=== PATIENT | female | born 1945 | race Caucasian/White ===

== ENCOUNTER → 2016-09-03 | Day surgery (SDC) | payer BC ==
--- NOTE | 2016-08-28 17:58 | MH ---
cc: FIFI DEL ANGEL MD DATE OF ADMISSION: 09/03/2016 DATE OF : 1945 REASON FOR ADMISSION: scheduled for trans obturator tape and the pelvic repair. HISTORY OF PRESENT ILLNESS: The patient is a 71-year-old white female 3, para 2 status post history of total abdominal hysterectomy and bilateral salpingo-oophorectomy. She has issues with stress urinary continence and pelvic organ prolapse posterior compartment. She had urodynamic study that shows no detrusor instability. No postvoid residual and leakage in approximately 50% capacity. PAST MEDICAL HISTORY: 1. Hypertension 2. hypercholesterolemia. MEDICATIONS 1. Aspirin 81 mg daily. 2. Pristiq 20 mg daily. 3. Diazepam 5 mg p.r.n. 4. Crestor 10 mg daily. ALLERGIES LIPITOR LORTAB OXYCODONE MORPHINE ADHESIVE TAPE CODEINE VICODIN PAST SURGICAL HISTORY 1. Total abdominal hysterectomy, bilateral salpingo-oophorectomy 2. Tonsillectomy 3. cholecystectomy. 4. Lumbar disk surgery 5. breast implants 6. Lasik procedure. SOCIAL HISTORY , has good social support. No alcohol or drugs. OBSTETRICAL HISTORY Two vaginal deliveries, largest baby 8.9 pounds GYNECOLOGIC HISTORY No STDs or abnormal Pap smears, hysterectomy for endometriosis. FAMILY HISTORY Noncontributory. REVIEW OF SYSTEMS Review of systems as above. No chest pain, orthopnea, PND. No nausea or chills. No vaginal bleeding or discharge. PHYSICAL EXAMINATION: VITAL SIGNS: height is 5'5", Weight 146, BMI is 24. Blood pressure 140/80. IN GENERAL: Patient is alert and oriented, in no acute distress. No sign of cognitive dysfunction or depression. HEAD, EYES, EARS, NOSE, AND THROAT: Normocephalic, atraumatic. [ NECK: supple. No JVD. CHEST: Clear. HEART: Regular rate and rhythm. ABDOMEN: The abdomen is soft, nontender, No hepatosplenomegaly. No tenderness. PELVIC: Exam in the office shows pop Q score Aa -2, Ap 0.3, Point C is -4, total vaginal length is 10. Perineal body is 5. Hypermobility of urethra as noted 30 degrees from horizontal with stress incontinence noted. Postvoid residual 30 cc. Further exam under anesthesia. EXTREMITIES: Normal skin rashes and nonfocal. No DVT signs. ASSESSMENT Patient with two separate issues, one stress urinary incontinence. Stress options for management treatment. She is aware of the risks, benefits, alternatives of planned procedure including damage to surrounding organs, bleeding, infection, failure to cure the incontinence also possibility of urinary dysfunction with prolonged catheterization. Pelvic pain and the pain with intercourse also discussed. Patient has made informed choice to proceed. The patient with pelvic organ prolapse posterior compartment stage II symptomatic. We discussed options for management treatment. She is aware of the risks returns procedure including damage to surrounding organs, bleeding, infection, possibility of failure of repair pain with intercourse, damage to bowel and ureters, failure of repair as well as healing complications. The patient expressed understanding of the above plan. At this point we used deep venous thrombosis prophylaxis with sequential compression device and antibiotic prophylaxis 2 grams Ancef IV. Anticipate outpatient procedure. MD KALIE Cochran/joleen /5:12 PM /5:51 PM
[~2016-09-03] MED LIST: ACETAMINOPHEN 1000 MG/100 ML VIAL IV ONE; ASPI-110 PO; BUDE0.5S NEB; CALC1TAB87 PO; CHEL50TA PO; CHLORHEXIDINE GLUCONATE 2 % 1 PACK (2 CLOTHS) TOPICAL PRN; COBA1000 PO; COZA25TA PO; CRAN500C9 PO; DESV25TA PO; DEXAMETHASONE SOD PHOS 4 MG/ML VIAL ONE; DIAZ5TAB PO; DO NOT ADM ANY ANTICOAGULANT DRUGS PRN; ESTR1TAB78 VAGINAL; ESTROGENS CONJUGATED VAG CREA 15 APPL/30 GM TUBE ONE; FAMOTIDINE 20 MG/2 ML VIAL ONE; FLUORESCEIN SOD 10% SOLN 500 MG/5 ML AMP IV ONE; FLUORESCEIN SOD 10% SOLN 500 MG/5 ML AMP ONE; INSULIN HUMAN REGULAR 1,000 UNITS/10 ML VIAL SQ PRN; KETOROLAC TROMETHAMINE 30 MG/ML (IVP) VIAL IV PUSH PRN; KETOROLAC TROMETHAMINE 60 MG/2 ML (IM) VIAL IM ONE; LACTATED RINGER'S 1000 ML INJ 1,000 ML IV ONE; LACTATED RINGER'S 1000 ML IV PRN; LIDOCAINE 1%/EPINEPHrine 1:100,000 SOLN 20 ML VIAL ONE; LIDOCAINE 1%/EPINEPHrine 1:100,000 SOLN 30 ML VIAL INFIL ONE; METHYLENE BLUE 10 MG/ML VIAL OTHER ONE; METOPROLOL TARTRATE 25 MG TAB PO PRN; MIDAZOLAM HCL 2 MG/2 ML VIAL ONE; MULTTAB25 PO; NIAC100T2 PO; ONDANSETRON HCL 4 MG/2 ML VIAL IV PUSH ONE; ONDANSETRON HCL 4 MG/2 ML VIAL IV PUSH PRN; POVIDONE IODINE 5% (ANTISEPSIS KIT) 4 APPLICATIONS EACH NARE PRN; PROPOFOL 200 MG/20 ML AMP IV ONE; ROSU10 PO; SODIUM CHLORID 0.9% 500 ML IV PRN; TRAV0.00 EACH EYE; ceFAZolin 2 GM PREMIX 50 ML IV SCH; ePHEDrine/NS 25 MG/5 ML SYR IV ONE; traMADol HCL 50 MG TAB PO PRN
[2016-09-03 07:52] VITALS: BP 134/93; PULSE 77; RESP 16; TEMP 98.1; O2SAT 100
[2016-09-03 14:00] VITALS: BP 135/74; PULSE 74; RESP 18; TEMP 97.7; O2SAT 97
--- NOTE | 2016-09-03 20:26 | EKG ---
Date Performed: 09/03/2016 Time Performed: 07:41:39 PTAGE: 71 years EKG: Sinus rhythm NORMAL ECG NO PREVIOUS TRACING DOCTOR: Марина Martinez Interpretating Date/Time 09/03/2016 20:25:45
--- NOTE | 2016-09-05 09:45 | MP ---
cc: FIFI DEL ANGEL DATE OF SURGERY 09/03/2016 PREOPERATIVE DIAGNOSIS Stress urinary incontinence, pelvic organ prolapse. POSTOPERATIVE DIAGNOSES Stress urinary incontinence, pelvic organ prolapse. PROCEDURE 1. Anterior posterior repair with enterocele. 2. Extraperitoneal apical suspension 3. Transobturator sling using Desara polypropylene sling manufactured by [employer]. 4. Diagnostic cystoscopy SURGEON Dr. Del Angel ANESTHESIA General endotracheal SENIOR TEST ENGINEER [place] staff x2 BLOOD LOSS 50 cc URINE OUTPUT 200 cc FLUIDS 1000 cc crystalloid FINDINGS External Genitalia normal. POP-Q score: Aa is -1, Ap is 0. Point C is -2. Genital hiatus is 6. Perineal body is 4. Following repair, POP-Q score: Aa is -3, Ap is -3. Point C is -8. Total vaginal length is 10. Genital hiatus is 6. Perineal body is 4. Cystoscopy shows normal trigone, good coaptation of urethra. Ureteral orifice patent x2. Dome and base of bladder normal. Rectal exam following repair is normal. SPECIMENS Mucosa trimmed, but not sent. COMPLICATIONS None DISPOSITION To recover room stable. COUNTS Needle and sponge counts correct. DRAINS Gomes catheter ANTIBIOTIC PROPHYLAXIS Ancef one gram. DVT PROPHYLAXIS Sequential compression device. Time-out procedure per protocol. SUMMARY OF INDICATIONS FOR THE PROCEDURE Patient with issues with pelvic organ prolapse and stress urinary continence. She had documented stress urinary continence on exam, has a leak point pressure that was one-half of capacity. No detrusor instability. PROCEDURE NOTE The patient was taken to the operating room theather, identified, prepped and draped in a fashion appropriate for the planned procedure. She was in the dorsolithotomy position with careful attention paid to placement of legs in the stirrups to avoid undue stress to sensitive neurovascular structures. Above findings noted. Neurovascular integrity documented. The obturator foramen were identified, marked and infiltrated with epinephrine/lidocaine solution. The urethra was identified by palpating the Gomes bulb in the anterior vaginal wall. This area was infiltrated and incised. We then reflected the urethra from the vaginal mucosa and extended these incisions somewhat to mobilize the bladder as well. An incision was made at the appropriate position to level of with clitoris and we placed a C-hook from a lateral to medial position lateral on the left side. There was no button-holing, no bleeding, no damage to the urethra. A similar procedure was performed on the right side without complication and no buttonholing. A sling was placed in the mid urethra using a scalpel handle as a spacer. It was appropriately tensioned. Cystoscopy was performed with the above findings. No sign of any damage to the urethra or bladder. Anterior repair performed in standard fashion without complications. The vaginal mucosa was trimmed and closed with running 2-0 Vicryl suture. We also used hemostatic matrix to obviate the need for packing. The anterior compartment was well supported. At this point, the posterior compartment and the apex were addressed. This was infiltrated with epinephrine/lidocaine solution posteriorly. We made a midline incision in the hymen to the apex, reflected the mucosa from the rectum, encountered enterocele which was closed with delayed absorbable suture. Rectocele repair was performed in standard fashion. The apex was affixed to the pubocervical remnants and the coccygeus muscle. The vaginal mucosa was trimmed. The mucosa was closed with a running Vicryl suture with good anatomic hemostatic result. Hemostatic matrix was used for added reassurance and to obviate the need for packing. Rectal exam confirmed good result with no damage to the rectum. The suture line was intact and had excellent suspension of the vagina and excellent vaginal length and a resolution of prolapse. The patient tolerated the procedure well, went to the recover room in stable condition. MD KALIE Cochran/TERESE /12:09 PM /9:26 AM
== END | disposition home or self-care (01) ==
LOC: HSDC 07:12
PROVIDERS: ATTEND Obstetrics & Gynecology Gynecology
DX: N39.3 Stress incontinence (female) (male) (principal); N99.3 Prolapse of vaginal vault after hysterectomy; E78.00 Pure hypercholesterolemia, unspecified; I10 Essential (primary) hypertension; Z79.82 Long term (current) use of aspirin; Z01.810 Encounter for preprocedural cardiovascular examination
CPT/HCPCS: 00840; 57265; 57282; 57288; 93005; C1771; J0131; J0690; J1100; J1885; J2250; J2405; J3010; J7120